=== PATIENT | female | born 1950 | race Caucasian/White ===

== ENCOUNTER → 2017-05-15 | Outpatient (CLI) | payer MEDICARE ==
--- NOTE | 2017-05-16 10:44 | KCIC ---
DATE: 05/15/2017 EXAM: MAMMO SELINA SCREENING BILATERAL HISTORY: Routine screening COMPARISON: 01/12/2016 This study was interpreted with the benefit of Computerized Aided Detection (CAD). The breast parenchyma is heterogeneously dense, which could reduce sensitivity of mammography. Breast parenchyma level C. FINDINGS: 2-D and 3-D tomosynthesis imaging was performed in CC and MLO projections. No new or enlarging breast densities are seen. Benign type calcifications are present. No suspicious microcalcifications have developed. IMPRESSION: Stable mammograms without evidence of malignancy. BI-RADS CATEGORY: 2 BENIGN FINDING(S) RECOMMENDED FOLLOW-UP: 12M 12 MONTH FOLLOW-UP PQRS compliance statement: Patient information was entered into a reminder system with a target due date for the next mammogram. Mammography is a sensitive method for finding small breast cancers, but it does not detect them all and is not a substitute for careful clinical examination. A negative mammogram does not negate a clinically suspicious finding and should not result in delay in biopsying a clinically suspicious abnormality. "Our facility is accredited by the [employer] Mammography [employer]."
== END | disposition home or self-care (01) ==
LOC: KCIC MAMMO 14:16
PROVIDERS: ATTEND Family Medicine
DX: Z12.31 Encounter for screening mammogram for malignant neoplasm of breast (principal)
CPT/HCPCS: 77063; G0202; 77067

== ENCOUNTER → 2018-05-16 | Outpatient (CLI) | payer MEDICARE ==
--- NOTE | 2018-05-16 11:10 | KCIC ---
Bilateral digital screening mammograms with 3-D tomosynthesis: Reason for examination: Routine screening. Comparison is made to previous studies dated back to 12/29/2014. Bilateral mammograms in CC and oblique projections were obtained with 2-D imaging and 3-D tomosynthesis imaging on a Siemens Inspiration unit and reviewed on the workstation. Interpretation was made with the benefit of CAD. The skin and nipples show no abnormalities. No abnormal axillary lymph nodes are seen. The breast parenchyma is heterogeneously dense. (Breast density: Category C.) There are no dominant masses, suspicious calcifications or architectural distortion. Benign calcifications are present. Impression: No evidence of malignancy. Recommend routine screening. Your patient's mammogram demonstrates that she has dense breast tissue (breast density category C or D), which could hide abnormalities, and if she has other risk factors for breast cancer that have been identified, she might benefit from supplemental screening tests that may be suggested by you as her ordering physician. Dense breast tissue, in and of itself, is a relatively common condition. Therefore, this information is not provided to cause undue concern, but rather to raise your awareness and to promote discussion with your patient regarding the presence of other risk factors, in addition to dense breast tissue. Your patient's mammography results will be sent to her. BI-RAD Category 2: Benign. "Our facility is accredited by the [employer] Mammography [employer]." This patient's information has been entered into a reminder system for the patient to be notified with the results of her examination and a target date for the next mammogram. Electronically signed by: Veronica Bai MD (05/16/2018 11:06 AM) [id number]
== END | disposition home or self-care (01) ==
LOC: KCIC MAMMO 08:44
PROVIDERS: ATTEND Family Medicine
DX: Z12.31 Encounter for screening mammogram for malignant neoplasm of breast (principal)
CPT/HCPCS: 77063; 77067

== ENCOUNTER → 2019-06-25 | Outpatient (CLI) | payer MEDICARE ==
--- NOTE | 2019-06-25 16:33 | KCIC ---
Bilateral digital screening mammograms with 3-D tomosynthesis: Reason for examination: Routine screening. Comparison is made to previous studies dated 05/16/2018 and 05/15/2017. Bilateral mammograms in CC and oblique projections were obtained with 2-D imaging and 3-D tomosynthesis imaging on a Siemens Inspiration unit and reviewed on the workstation. Interpretation was made with the benefit of CAD. The skin and nipples show no abnormalities. No abnormal axillary lymph nodes are seen. The breast parenchyma is heterogeneously dense. (Breast density: Category C.) There continues to be some nodularity to the parenchyma in the central left breast which is unchanged. There continue to be small nodules consistent with intramammary lymph nodes present bilaterally which are unchanged. There are no new dominant masses, suspicious calcifications or architectural distortion. Benign calcifications are present. Impression: No evidence of malignancy. Recommend routine screening. Your patient's mammogram demonstrates that she has dense breast tissue (breast density category C or D), which could hide abnormalities, and if she has other risk factors for breast cancer that have been identified, she might benefit from supplemental screening tests that may be suggested by you as her ordering physician. Dense breast tissue, in and of itself, is a relatively common condition. Therefore, this information is not provided to cause undue concern, but rather to raise your awareness and to promote discussion with your patient regarding the presence of other risk factors, in addition to dense breast tissue. Your patient's mammography results will be sent to her. BI-RAD Category 2: Benign. "Our facility is accredited by the [employer] Mammography [employer]." This patient's information has been entered into a reminder system for the patient to be notified with the results of her examination and a target date for the next mammogram. Electronically signed by: Veronica Bai MD (06/25/2019 4:30 PM) [id number]
== END | disposition home or self-care (01) ==
LOC: KCIC MAMMO 09:38
PROVIDERS: ATTEND Family Medicine
DX: Z12.31 Encounter for screening mammogram for malignant neoplasm of breast (principal); N63.20 Unspecified lump in the left breast, unspecified quadrant; N63.10 Unspecified lump in the right breast, unspecified quadrant; N64.89 Other specified disorders of breast
CPT/HCPCS: 77063; 77067

== ENCOUNTER → 2020-07-21 | Outpatient (CLI) | payer MEDICARE ==
--- NOTE | 2020-07-21 15:16 | KCIC ---
Bilateral digital screening mammograms and tomosynthesis Reason for examination: Routine screening. Comparison is made to previous study dated June 25, 2019 and priors Routine CC and MLO digital views obtained. Interpretation was made with the benefit of CAD. The skin and nipples show no abnormalities. No abnormal axillary lymph nodes are seen. The breast par enchyma is heterogeneously dense. (Breast density: Category C.) There are no suspicious masses, suspi cious calcifications or architectural distortion. Bilateral benign calcifications. Small upper-outer quadrant intramammary lymph nodes are stable, benign. At the right inner breast 3:00 position 6 cm from nipple there is a glandular asymmetry on both the C C and MLO views with no underlying mass lesion on tomosynthesis new from prior studies. At the left inner breast posterior depth 7 cm from nipple on the CC view only is a small subcentimete r nodular asymmetry with no correlate on MLO view but is new from prior studies. Impression: Bilateral breast asymmetries as described above. Further evaluation with bilateral breast ultrasound is advised.. BI-RADS Category 0: Incomplete. Need additional imaging evaluation. ?Your patient's mammogram demonstrates that she has dense breast tissue (breast density category C or D), which could hide abnormalities, and if she has other risk factors for breast cancer that have be en identified, she might benefit from supplemental screening tests that may be suggested by you as he r ordering physician. Dense breast tissue, in and of itself, is a relatively common condition. Theref ore, this information is not provided to cause undue concern, but rather to raise your awareness and to promote discussion with your patient regarding the presence of other risk factors, in addition to dense breast tissue. Your patient's mammography results will be sent to her. "Our facility is accredited by the [employer] Mammography [employer]." Electronically signed by: Dennis Nino MD (07/21/2020 3:14 PM) [facility]
== END ==
LOC: KCIC MAMMO 09:37
PROVIDERS: ATTEND Family Medicine
DX: Z12.31 Encounter for screening mammogram for malignant neoplasm of breast (principal)
CPT/HCPCS: 77063; 77067

== ENCOUNTER → 2020-08-07 | Outpatient (CLI) | payer MEDICARE ==
--- NOTE | 2020-08-07 14:24 | RAD ---
Examination: Limited bilateral breast ultrasound. INDICATION: Screening recall for bilateral asymmetries. COMPARISON: Bilateral mammograms of 07/21/2020 and 05/15/2017. TECHNIQUE: Grayscale ultrasound imaging of both breasts in the areas of mammographic interest, on the right at the 3:00 position 6 cm from the nipple and in the left the inner half of the breast spannin g 6 through 12:00 positions approximately 7 cm from the nipple. FINDINGS: In both the right and left breasts, no sonographic abnormality was observed. No definite sonographic correlate to the areas of asymmetry identified on mammography were seen. On review of the bilateral s creening mammograms, the asymmetries could represent islands of benign fibroglandular tissue which wo uld explain the sonographic findings. IMPRESSION: Negative bilateral targeted breast ultrasound. No evidence of malignancy. BI-RADS Category 1 Negative Recommend patient return to routine mammographic screening next due in one year Electronically signed by: Darby Sanabria MD (08/07/2020 2:21 PM) [id number]
== END ==
LOC: US 13:47
PROVIDERS: ATTEND Family Medicine
DX: R92.8 Other abnormal and inconclusive findings on diagnostic imaging of breast (principal)
CPT/HCPCS: 76641-50